=== PATIENT | male | born 1955 | race Hispanic/Latino ===

== ENCOUNTER 2020-11-25 00:49 | Inpatient (IN) | payer MEDICARE, OTHER ==
[2020-11-25 01:43] LABS: BASOPHILS % 0.2 % (0.0-1.0); EOSINOPHILS % 0.4 % (0.0-6.0); HEMATOCRIT 39.3 % (38.2-49.6); HEMOGLOBIN 12.2 g/dL (14.0-18.0); LYMPHOCYTES # (AUTO) 2.2 (1.0-3.2); MEAN CORPUSCULAR HEMOGLOBIN 30.7 pg (28-32); MEAN CORPUSCULAR VOLUME 98.7 fL (81-99); MONOCYTES % 10.6 % (4.4-11.3); NEUTROPHILS # (AUTO) 5.8 (2.1-6.9); NEUTROPHILS % 64.2 % (38.7-80.0); PLATELET COUNT 276 x10e3/uL (140-360); RED BLOOD COUNT 3.98 x10e6/uL (4.3-5.7); RED CELL DISTRIBUTION WIDTH 13.6 % (11.7-14.4)
[2020-11-25 01:49] LABS: ALBUMIN 3.4 g/dL (3.5-5.0); ALBUMIN/GLOBULIN RATIO 0.8 (0.8-2.0); CALCIUM 8.5 mg/dL (8.4-10.2); CARBON DIOXIDE 20 mmol/L (22-29); CHLORIDE 109 mmol/L (98-107); CREATININE, SERUM 0.78 mg/dL (0.72-1.25); EST GLOMERULAR FILTRATION RATE 100 ML/MIN (60-); GLUCOSE 123 mg/dL (74-118); SODIUM 143 mmol/L (136-145)
[2020-11-25 02:08] LABS: CLARITY,URINE CLEAR (CLEAR); COLOR,URINE YELLOW (YELLOW); KETONES,URINE NEGATIVE (NEGATIVE); LEUKOCYTE ESTERASE ,URINE NEGATIVE (NEGATIVE); NITRITE,URINE NEGATIVE (NEGATIVE); PROTEIN,URINE DIPSTICK 1+ (NEGATIVE); RBC,URINE 0-5 /HPF (0-5); URINE UROBILINOGEN 0.2 mg/dL (0.2 - 1); WBC,URINE (MAN) 0-5 /HPF (0-5)
[2020-11-25 02:09] LABS: BACTERIA,URINE FEW /HPF; EPITHELIAL CELLS,URINE FEW /LPF
[2020-11-25 02:16] LABS: ALKALINE PHOSPHATASE 975 IU/L (40-150); BLOOD UREA NITROGEN 12 mg/dL (7-26); BUN/CREATININE RATIO 16 (6-25); CREATINE KINASE 33 IU/L (30-200)
[2020-11-25 02:19] LABS: ABG HCO3 22 mmol/L (22-26); ABG PCO2 28 mmHg (35-45); ABG PO2 122 mmHg (80-105); ABG TCO2 23
[2020-11-25 02:20] LABS: ALANINE AMINOTRANSFERASE < 6 IU/L (0-55)
[2020-11-25] MEDS ORDERED: VALPROIC A250 MG/51 (02:55)
[2020-11-25] MEDS ORDERED: LACTULOSE20 GM/30 M PO (02:55)
[2020-11-25] MEDS ORDERED: KEPPRA500 MG PO (02:57)
[2020-11-25] MEDS ORDERED: SODIUM CHLORIDE 0.9% 1000ML 1,000 ML IV SCH (03:30)
[2020-11-25] MEDS: CEFTRIAXONE 1 GM in SODIUM CHLORIDE 0.9% 50ML 50 ML IV SCH ×2 (03:30→20:59)
[2020-11-25] MEDS ORDERED: ACETAMINOPHEN 650 MG SUPP PR PRN (03:30)
[2020-11-25] MEDS ORDERED: SODIUM CHLORIDE 0.9% 250ML 250 ML ONE ×2 (03:50→20:46)
[2020-11-25] MEDS ORDERED: CEFTRIAXONE 1 GM VIAL ONE (03:50)
[2020-11-25 07:06] LABS: CREATINE KINASE 46 IU/L (30-200)
[2020-11-25] MEDS: DEXTROSE 5%/0.45% SOD CHL 1,000 ML IV SCH ×2 (10:25→20:59)
[2020-11-25] MEDS ORDERED: LEVETIRACETAM 500MG/5ML VIAL 500 MG in SODIUM CHLORIDE 0.9% 100 ML 100 ML IV SCH (10:30)
[2020-11-25 15:05] LABS: INR 1.03; PROTHROMBIN TIME 13.7 seconds (11.9-14.5)
[2020-11-25 15:06] LABS: PARTIAL THROMBOPLASTIN TIME 31.7 seconds (23.8-35.5)
[2020-11-25 15:45] LABS: CREATINE KINASE MB 0.4 ng/mL (0-5.0)
[2020-11-25] MEDS: VALPROATE 250MG/5ML ORAL LIQ 5ml PO SCH (17:00)
[2020-11-25] MEDS: LEVETIRACETAM 500 MG TAB PO SCH (17:00)
[2020-11-25] MEDS: LACTULOSE SYRUP 20 GM/30 ML UDC PO SCH (17:00)
[2020-11-25 17:02] VITALS: BP 132/75
[2020-11-25 20:29] VITALS: BP 97/77
[2020-11-25 21:00] VITALS: BP 97/77
[2020-11-26] VITALS (8 sets, daily range): BP systolic 103–129; BP diastolic 57–78
[2020-11-26] MEDS: DEXTROSE 5%/0.45% SOD CHL 1,000 ML IV SCH ×2 (05:33→15:22)
[2020-11-26 06:09] LABS: BASOPHILS % 0.2 % (0.0-1.0); EOSINOPHILS % 0.4 % (0.0-6.0); HEMATOCRIT 35.9 % (38.2-49.6); HEMOGLOBIN 11.5 g/dL (14.0-18.0); LYMPHOCYTES # (AUTO) 2.2 (1.0-3.2); LYMPHOCYTES % 23.6 % (18.0-39.1); MEAN CORPUSCULAR HEMOGLOBIN 31.2 pg (28-32); MEAN CORPUSCULAR VOLUME 97.3 fL (81-99); MONOCYTES # (AUTO) 0.8 (0.2-0.8); MONOCYTES % 7.9 % (4.4-11.3); NEUTROPHILS # (AUTO) 6.4 (2.1-6.9); NEUTROPHILS % 67.6 % (38.7-80.0); PLATELET COUNT 243 x10e3/uL (140-360); RED BLOOD COUNT 3.69 x10e6/uL (4.3-5.7); RED CELL DISTRIBUTION WIDTH 13.3 % (11.7-14.4)
[2020-11-26 06:34] LABS: ALBUMIN 2.8 g/dL (3.5-5.0); ALBUMIN/GLOBULIN RATIO 0.8 (0.8-2.0); ALKALINE PHOSPHATASE 815 IU/L (40-150); ANION GAP 14.3 mmol/L (8-16); BLOOD UREA NITROGEN 18 mg/dL (7-26); BUN/CREATININE RATIO 27 (6-25); CALCIUM 8.1 mg/dL (8.4-10.2); CARBON DIOXIDE 21 mmol/L (22-29); CHLORIDE 111 mmol/L (98-107); CREATININE, SERUM 0.67 mg/dL (0.72-1.25); EST GLOMERULAR FILTRATION RATE 119 ML/MIN (60-); GLUCOSE 105 mg/dL (74-118); POTASSIUM 3.3 mmol/L (3.5-5.1); SODIUM 143 mmol/L (136-145)
[2020-11-26 08:04] LABS: ALANINE AMINOTRANSFERASE < 6 IU/L (0-55)
[2020-11-26] MEDS: LEVETIRACETAM 500 MG TAB PO SCH ×2 (09:00→17:54)
[2020-11-26] MEDS: LACTULOSE SYRUP 20 GM/30 ML UDC PO SCH ×2 (09:00→17:54)
[2020-11-26] MEDS: VALPROATE 250MG/5ML ORAL LIQ 5ml PO SCH ×2 (10:31→17:54)
[2020-11-26] MEDS: CEFTRIAXONE 1 GM in SODIUM CHLORIDE 0.9% 50ML 50 ML IV SCH (21:33)
[2020-11-27] VITALS (7 sets, daily range): BP systolic 100–124; BP diastolic 68–73
[2020-11-27] MEDS: DEXTROSE 5%/0.45% SOD CHL 1,000 ML IV SCH ×2 (02:00→11:30)
[2020-11-27] MEDS: VALPROATE 250MG/5ML ORAL LIQ 5ml PO SCH ×2 (10:44→16:35)
[2020-11-27] MEDS: LACTULOSE SYRUP 20 GM/30 ML UDC PO SCH ×2 (10:44→16:35)
[2020-11-27] MEDS: LEVETIRACETAM 500 MG TAB PO SCH ×2 (10:44→16:35)
[2020-11-27] MEDS ORDERED: CEFTRIAXONE1 GM IM (16:48)
== END 2020-11-27 19:00 | DRG 178 ==
LOC: ER 00:58 → ERHOLD 03:27 → MED/SURG2 10:46
PROVIDERS: ADMIT Internal Medicine; ATTEND Internal Medicine
DX: J69.0 Pneumonitis due to inhalation of food and vomit (principal); N17.9 Acute kidney failure, unspecified; R09.02 Hypoxemia; G40.909 Epilepsy, unspecified, not intractable, without status epilepticus; F03.90 Unspecified dementia, unspecified severity, without behavioral disturbance, psychotic disturbance, mood disturbance, and anxiety; Z20.822 Contact with and (suspected) exposure to COVID-19; Z85.46 Personal history of malignant neoplasm of prostate
CPT/HCPCS: 36415; 36600; 70450; 71045; 74230; 80053; 80164; 81001; 82550; 82553; 82805; 82948; 83605; 83880; 84484; 85025; 85610; 85730; 87040; 87086; 93005; 99285; J0456; J0696; J7030; J7050; U0002